=== PATIENT | male | born 1970 | race Caucasian/White ===

== ENCOUNTER 2016-12-03 16:36 | Emergency (ER) | payer BC, OTHER ==
[2016-12-03] MEDS ORDERED: Sodium Chloride 0.9% 10 ML Syringe FLUSH PRN (17:38)
--- NOTE | 2016-12-03 17:45 | EDM.PDOC ---
[id number]: PANIC ATTACK/NOW PROBLEM UNCLENCHING HAND Time Seen by Provider: 12/03/16 17:35 Source of Information: Reports: Patient, RN History Limitations: Reports: No Limitations - History of Present Illness INITIAL COMMENTS - FREE TEXT/NARRATIVE: 46 yo male here from work after developing some expressive aphasia that lasted about and hour and is now resolved. Also noted L hand clenching since then and L wrist/hand numbness that persists. No hx of CVA. Is a smoker. Has a pHx of anxiety and is taking his Celexa as prescribed. Thought he was having severe anxiety, but did not get any facial numbness or hyperventilation sx's. Came from work. Took 2 aspirin at work. Onset: Today Onset Date: 12/03/16 Onset Time: 15:00 Duration: Hour(s):, Improving Location: Reports: Face, Upper Extremity, Left Quality: Reports: Other (numbness.) Severity: Moderate Improves with: Reports: Other (? time.) Worsens with: Reports: Other (unknown) Context: Reports: Other (Smoker/obesity. Unknown cholesterol status. ) Associated Symptoms: Reports: Other (speech expressive aphasia with L arm numbnes/clenching of fist. 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 - Related Data Allergies Allergy/AdvReac Type Severity Reaction Status Date / Time No Known Allergies Allergy Verified 11/14/13 13:39 Home Meds: Home Meds Citalopram [Citalopram HBr] 20 mg PO DAILY 12/03/16 [History] Past Medical History - Past Health History Medical/Surgical History: Denies Medical/Surgical History Musculoskeletal History: Reports: Fracture Psychiatric History: Reports: Anxiety, Panic Attack - Past Surgical History GI Surgical History: Reports: Cholecystectomy Social & Family History - Tobacco Use Smoking Status *Q: Light Tobacco Smoker Years of Tobacco use: 20 Packs/Tins Daily: 0.5 - Caffeine Use Caffeine Use: Reports: None - Recreational Drug Use Recreational Drug Use: No ED ROS GENERAL - Review of Systems Review Of Systems: See Below Constitutional: Reports: No Symptoms HEENT: Reports: No Symptoms Respiratory: Reports: No Symptoms Cardiovascular: Reports: No Symptoms GI/Abdominal: Reports: No Symptoms : Reports: No Symptoms Musculoskeletal: Reports: No Symptoms Skin: Reports: No Symptoms Neurological: Reports: Numbness (left hand), Other (expressive aphasia for about an hour starting at 3 pm. L hand/wrist numbness with L hand clenching. ) Psychiatric: Reports: Anxiety (hx of anxiety, ? today.) Hematologic/Lymphatic: Reports: No Symptoms ED EXAM, NEURO - Physical Exam Exam: See Below Exam Limited By: No Limitations General Appearance: Alert, WD/WN, No Apparent Distress Eye Exam: Bilateral Eye: EOMI, Normal Inspection, PERRL Ears: Normal External Exam, Normal Canal, Hearing Grossly Normal Nose: Normal Inspection, Normal Mucosa, No Blood Throat/Mouth: Normal Inspection, Normal Lips, Normal Teeth, Normal Oropharynx, Normal Voice, No Airway Compromise Head Exam: Atraumatic, Normocephalic Neck: Normal Inspection, Supple, Non-Tender Respiratory/Chest: No Respiratory Distress, Lungs Clear, Normal Breath Sounds, No Accessory Muscle Use Cardiovascular: Regular Rate, Rhythm, No Edema GI/Abdominal: Normal Bowel Sounds, Soft, Non-Tender, No Distention Neurological: Alert, Normal Mood/Affect, Normal Dorsiflexion, CN II-XII Intact, Oriented x 3, Abnormal Sensation (L hand and wrist numb.) DTR: 3+: Bicep (R), Bicep (L), Tricep (R), Tricep (L), Patella (R), Patella (L) , Achilles (R), Achilles (L) Back Exam: Normal Inspection Extremities: Normal Inspection, Normal Range of Motion, Non-Tender, No Pedal Edema, Other (L hand clenched, but is able to open it. 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 Last Recorded V/S: Last Vital Signs Temp 35.7 C 12/03/16 17:03 Pulse 65 12/03/16 17:03 Resp 16 12/03/16 17:03 BP 132/91 H 12/03/16 17:03 Pulse Ox 97 12/03/16 17:03 - Orders/Labs/Meds Orders: Active Orders 24 hr Category Date Time Status Cardiac Monitoring [RC] .As Directed Care 12/03/16 17:38 Active Head wo Cont [CT] Stat Exams 12/03/16 17:39 Taken UA W/MICROSCOPIC [URIN] Stat Lab 12/03/16 17:38 Uncollected Sodium Chloride 0.9% [Saline Flush] Med 12/03/16 17:38 Active 10 ml FLUSH ASDIRECTED PRN Saline Lock Insert [OM.PC] Routine Oth 12/03/16 17:38 Ordered Medication Orders Sodium Chloride (Saline Flush) 10 ml FLUSH ASDIRECTED PRN PRN Reason: Keep Vein Open Last Admin: 12/03/16 17:51 Dose: 10 ml Labs: Laboratory Tests 12/03/16 12/03/16 Range/Units 17:48 17:48 WBC 11.2 H (4.5-11.0) K/uL RBC 5.28 (4.30-5.90) M/uL Hgb 16.7 H (12.0-15.0) g/dL Hct 49.7 (40.0-54.0) % MCV 94 (80-98) fL MCH 32 H (27-31) pg MCHC 34 (32-36) % Plt Count 236 (150-400) K/uL Sodium 140 (140-148) mmol/L Potassium 4.7 (3.6-5.2) mmol/L Chloride 104 (100-108) mmol/L Carbon Dioxide 28 (21-32) mmol/L Anion Gap 8.1 (5.0-14.0) mmol/L BUN 16 D (7-18) mg/dL Creatinine 1.3 (0.8-1.3) mg/dL Est Cr Clr Drug Dosing 79.59 mL/min Estimated GFR (MDRD) 60 (>60) Glucose 94 (74-106) mg/dL Calcium 9.0 (8.5-10.1) mg/dL Troponin I < 0.017 (0.000-0.056) ng/mL Meds: Medications Generic Name Dose Route Start Last Admin Trade Name Freq PRN Reason Stop Dose Admin Sodium Chloride 10 ml 12/03/16 17:38 12/03/16 17:51 Saline Flush FLUSH 10 ml ASDIRECTED PRN Administration Keep Vein Open Departure - Departure Time of Disposition: 18:13 Disposition: Still A Patient 30 Condition: Fair Clinical Impression: TIA (transient ischemic attack) Qualifiers: Transient cerebral ischemia type: carotid artery syndrome (hemispheric) Qualified Code(s): G45.1 - Carotid artery syndrome (hemispheric) - Discharge Information Referrals: PCP,None [Primary Care Provider] - Forms: ED Department Discharge - My Orders Last 24 Hours: My Active Orders 12/03/16 17:38 Cardiac Monitoring [RC] .As Directed UA W/MICROSCOPIC [URIN] Stat Sodium Chloride 0.9% [Saline Flush] 10 ml FLUSH ASDIRECTED PRN Saline Lock Insert [OM.PC] Routine 12/03/16 17:39 Head wo Cont [CT] Stat - Assessment/Plan Last 24 Hours: My Active Orders 12/03/16 17:38 Cardiac Monitoring [RC] .As Directed UA W/MICROSCOPIC [URIN] Stat Sodium Chloride 0.9% [Saline Flush] 10 ml FLUSH ASDIRECTED PRN Saline Lock Insert [OM.PC] Routine 12/03/16 17:39 Head wo Cont [CT] Stat
[2016-12-03 18:51] VITALS: BP 143/93
[2016-12-03] MEDS ORDERED: LORazepam 2 MG/ML MDV IVPUSH ONE (18:53)
--- NOTE | 2016-12-03 19:00 | EDM.PDOC ---
ED HPI GENERAL MEDICAL PROBLEM - General Chief Complaint: Behavioral/Psych Stated Complaint: PANIC ATTACK/NOW PROBLEM UNCLENCHING HAND Time Seen by Provider: 12/03/16 18:58 Source of Information: Reports: Patient, RN History Limitations: Reports: No Limitations - History of Present Illness INITIAL COMMENTS - FREE TEXT/NARRATIVE: 46 yo male here from work after developing some expressive aphasia that lasted about and hour and is now resolved. Also noted L hand clenching since then and L wrist/hand numbness that persists. No hx of CVA. Is a smoker. Has a pHx of anxiety and is taking his Celexa as prescribed. Thought he was having severe anxiety, but did not get any facial numbness or hyperventilation sx's. Came from work. Took 2 aspirin at work. Onset: Today Onset Date: 12/03/16 Onset Time: 15:00 Duration: Hour(s):, Improving Location: Reports: Face, Upper Extremity, Left Quality: Reports: Other (numbness.) Severity: Moderate Improves with: Reports: Other (? time.) Worsens with: Reports: Other (unknown) Context: Reports: Other (Smoker/obesity. Unknown cholesterol status. ) Associated Symptoms: Reports: Other (speech expressive aphasia with L arm numbnes/clenching of fist. 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 - Related Data Allergies Allergy/AdvReac Type Severity Reaction Status Date / Time No Known Allergies Allergy Verified 11/14/13 13:39 Home Meds: Home Meds Citalopram [Citalopram HBr] 20 mg PO DAILY 12/03/16 [History] Past Medical History - Past Health History Medical/Surgical History: Denies Medical/Surgical History Musculoskeletal History: Reports: Fracture Psychiatric History: Reports: Anxiety, Panic Attack - Past Surgical History GI Surgical History: Reports: Cholecystectomy Social & Family History - Tobacco Use Smoking Status *Q: Light Tobacco Smoker Years of Tobacco use: 20 Packs/Tins Daily: 0.5 - Caffeine Use Caffeine Use: Reports: None - Recreational Drug Use Recreational Drug Use: No ED ROS GENERAL - Review of Systems Review Of Systems: ROS reveals no pertinent complaints other than HPI. ED EXAM, NEURO - Physical Exam Exam: See Below Text/Narrative:: His difficulty with speech has resolved he continues to have the cleansed test on the left hand however he demonstrates no weakness he can open his hand but when he relaxes the hand slowly clinches back Course - Vital Signs Last Recorded V/S: Last Vital Signs Temp 96.3 F 12/03/16 17:03 Pulse 62 12/03/16 18:50 Resp 14 12/03/16 18:50 BP 143/93 H 12/03/16 18:50 Pulse Ox 98 12/03/16 18:50 - Orders/Labs/Meds Orders: Active Orders 24 hr Category Date Time Status Cardiac Monitoring [RC] .As Directed Care 12/03/16 17:38 Active EKG Documentation Completion [RC] ASDIRECTED Care 12/03/16 18:41 Active Head wo Cont [CT] Stat Exams 12/03/16 17:39 Taken UA W/MICROSCOPIC [URIN] Stat Lab 12/03/16 17:38 Uncollected Sodium Chloride 0.9% [Saline Flush] Med 12/03/16 17:38 Active 10 ml FLUSH ASDIRECTED PRN Saline Lock Insert [OM.PC] Routine Oth 12/03/16 17:38 Ordered EKG 12 Lead [EK] Stat Ther 12/03/16 18:41 Ordered Medication Orders Sodium Chloride (Saline Flush) 10 ml FLUSH ASDIRECTED PRN PRN Reason: Keep Vein Open Last Admin: 12/03/16 17:51 Dose: 10 ml Labs: Laboratory Tests 12/03/16 12/03/16 12/03/16 Range/Units 17:42 17:42 17:48 WBC 11.2 H (4.5-11.0) K/uL RBC 5.28 (4.30-5.90) M/uL Hgb 16.7 H (12.0-15.0) g/dL Hct 49.7 (40.0-54.0) % MCV 94 (80-98) fL MCH 32 H (27-31) pg MCHC 34 (32-36) % Plt Count 236 (150-400) K/uL PT 9.7 (9.5-12.0) sec INR 0.91 (0.80-1.20) D-Dimer, Quantitative < 100 (0.0-400.0) ng/mL Sodium (140-148) mmol/L Potassium (3.6-5.2) mmol/L Chloride (100-108) mmol/L Carbon Dioxide (21-32) mmol/L Anion Gap (5.0-14.0) mmol/L BUN (7-18) mg/dL Creatinine (0.8-1.3) mg/dL Est Cr Clr Drug Dosing mL/min Estimated GFR (MDRD) (>60) Glucose (74-106) mg/dL Calcium (8.5-10.1) mg/dL Troponin I (0.000-0.056) ng/mL 12/03/16 Range/Units 17:48 WBC (4.5-11.0) K/uL RBC (4.30-5.90) M/uL Hgb (12.0-15.0) g/dL Hct (40.0-54.0) % MCV (80-98) fL MCH (27-31) pg MCHC (32-36) % Plt Count (150-400) K/uL PT (9.5-12.0) sec INR (0.80-1.20) D-Dimer, Quantitative (0.0-400.0) ng/mL Sodium 140 (140-148) mmol/L Potassium 4.7 (3.6-5.2) mmol/L Chloride 104 (100-108) mmol/L Carbon Dioxide 28 (21-32) mmol/L Anion Gap 8.1 (5.0-14.0) mmol/L BUN 16 D (7-18) mg/dL Creatinine 1.3 (0.8-1.3) mg/dL Est Cr Clr Drug Dosing 79.59 mL/min Estimated GFR (MDRD) 60 (>60) Glucose 94 (74-106) mg/dL Calcium 9.0 (8.5-10.1) mg/dL Troponin I < 0.017 (0.000-0.056) ng/mL Meds: Medications Generic Name Dose Route Start Last Admin Trade Name Freq PRN Reason Stop Dose Admin Sodium Chloride 10 ml 12/03/16 17:38 12/03/16 17:51 Saline Flush FLUSH 10 ml ASDIRECTED PRN Administration Keep Vein Open Discontinued Medications Generic Name Dose Route Start Last Admin Trade Name Freq PRN Reason Stop Dose Admin Lorazepam 1 mg 12/03/16 18:53 12/03/16 19:23 Ativan IVPUSH 12/03/16 18:54 1 mg ONETIME ONE Administration - Re-Assessments/Exams Free Text/Narrative Re-Assessment/Exam: 12/03/16 18:59 Called and discussed the case with neurology on-call [facility] Dr. Kendall felt this probably not a cerebrovascular accident more likely psychogenic recommended trying benzodiazepines also consideration of possible focal seizure Departure - Departure Time of Disposition: 19:37 Disposition: Home, Self-Care 01 Condition: Fair Clinical Impression: Panic disorder - Discharge Information Referrals: PCP,None [Primary Care Provider] - Forms: ED Department Discharge Additional Instructions: Continue to use the Ativan as needed, Please followup with your primary care provider in 3-5 days if not better, please call return to the emergency department with worsening of symptoms. - My Orders Last 24 Hours: My Active Orders 12/03/16 18:41 EKG Documentation Completion [RC] ASDIRECTED EKG 12 Lead [EK] Stat - Assessment/Plan Last 24 Hours: My Active Orders 12/03/16 18:41 EKG Documentation Completion [RC] ASDIRECTED EKG 12 Lead [EK] Stat Plan: Assessment Acuity = acute Site and laterality = panic attack Etiology = generalized anxiety Manifestations = fist clenching left side Location of injury = Home Lab values = CBC, CMP, troponin, d-dimer, PT all within normal limits EKG demonstrates sinus rhythm head scan negative Plan He had good relief from the Ativan provided he is to follow-up with his primary care for further evaluation generalized anxiety disorder versus possible focal seizure Patient was in agreement with the plan all questions were answered, they were instructed to return to the emergency department or call for worsening symptoms. This note was dictated using [employer] voice recognition software please call with any questions.
== END 2016-12-03 20:10 | disposition home or self-care (01) ==
LOC: JP.ED 16:36
DX: F41.0 Panic disorder [episodic paroxysmal anxiety] (principal); F17.210 Nicotine dependence, cigarettes, uncomplicated; Z79.899 Other long term (current) drug therapy
CPT/HCPCS: 36415; 70450; 80048; 84484; 85027; 85379; 85610; 93005; 96374; 99284; J2060; J7050